=== PATIENT | female | born 1930 | race African-American/Black ===

== ENCOUNTER 2016-09-28 13:22 | Emergency (ER) | payer MEDICARE, OTHER ==
[~2016-09-28] VITALS: Ht 152.4 cm; Wt 55.3 kg
--- NOTE | 2016-09-28 13:31 | NUR ---
PT BIB [facility] TO ER BED 11. PRESENTS W/ SCALP HEMATOMA. PER REPORT, HEMATOMA WAS NOTED THIS MORNING. NO TRAUMA PER REPORT. AAOX1. BASELINE. ON MONITOR. AWAITING MD CASTORENA.
--- NOTE | 2016-09-28 13:58 | NUR ---
PT TO RADIOLOGY FOR HEAD AND C SPINE CT SCAN VIA [facility].
--- NOTE | 2016-09-28 14:52 | NUR ---
CALLED [facility] FOR TRANSPORT BACK TO [facility], ETA 45 MIN- 1 HOUR
--- NOTE | 2016-09-28 16:00 | NUR ---
TRANSFERED BACK TO [facility]. STABLE CONDITION.
[2016-09-28 16:09] VITALS: BP 139/84
== END 2016-09-28 16:10 | disposition home or self-care (01) ==
LOC: ER 13:25
DX: S00.03XA Contusion of scalp, initial encounter (principal); G93.40 Encephalopathy, unspecified; F03.90 Unspecified dementia, unspecified severity, without behavioral disturbance, psychotic disturbance, mood disturbance, and anxiety; I11.0 Hypertensive heart disease with heart failure; I50.9 Heart failure, unspecified; M85.80 Other specified disorders of bone density and structure, unspecified site; W19.XXXA Unspecified fall, initial encounter; Y93.89 Activity, other specified; Y92.89 Other specified places as the place of occurrence of the external cause; Y99.8 Other external cause status
CPT/HCPCS: 70450; 72125; 99284; A4606; Z7610